=== PATIENT | male | born 1930 | race Caucasian/White ===

== ENCOUNTER 2017-08-07 16:08 | Inpatient (IN) | payer OTHER, BC ==
--- NOTE | 2017-08-07 16:20 | PDOC ---
History of Present Illness - General History Source: Patient Exam Limitations: No Limitations - History of Present Illness Initial Comments: 08/07/17 17:41 The patient is a 87-year-old male with a significant past medical history of HTN and HLD on baby aspirin, who presents to the emergency department with left- sided facial droop today. As per daughter, the patient was at his birthday lunch and had one beer. The patient took a nap at 2pm, which was his last known normal. Daughter states she noticed left-sided facial droop and weakness when the patient woke up at 3pm. Daughter tried to feed the patient water but states that the water drooled out of the left side of his mouth. Daughter denies any current slurred speech or drift in the extremities. Upon interview the patient exhibits mild left-sided facial droop. The patient denies chest pain, shortness of breath, headache and dizziness. The patient denies fever, chills, nausea, vomit, diarrhea and constipation. The patient denies dysuria, frequency, urgency and hematuria. Allergies: NKDA Social History: Recreational alcohol use. No other toxic habits reported <Yaquelin Wright - Last Filed: 08/07/17 17:59> <Kiana De La Fuente - Last Filed: 08/07/17 18:08> - General Chief Complaint: CVA/TIA Stated Complaint: SLURR SPEECH Time Seen by Provider: 08/07/17 16:20 Past History <Yaquelin Wright - Last Filed: 08/07/17 17:59> - Past Medical History Anemia: No Asthma: No Cancer: No Cardiac Disorders: No CVA: No COPD: No CHF: No Diabetes: No GI Disorders: No Disorders: No HTN: Yes Hypercholesterolemia: Yes Liver Disease: No Seizures: No Thyroid Disease: No - Surgical History Cardiac Surgery: No Neurologic Surgery: No Orthopedic Surgery: Yes (REPLACEMENT OF SHOULDER RIGHT) - Suicide/Smoking/Psychosocial Hx Smoking History: Never smoked Have you smoked in the past 12 months: No Information on smoking cessation initiated: No 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[employer]) Drug/Substance Use Hx: No Substance Use Type: None Hx Substance Use Treatment: No <Kiana De La Fuente - Last Filed: 08/07/17 18:08> - Past Medical History Allergies/Adverse Reactions: Allergies Allergy/AdvReac Type Severity Reaction Status Date / Time No Known Drug Allergies Allergy Verified 08/07/17 16:10 Home Medications: Ambulatory Orders Amoxicillin - [Amoxicillin 500mg Capsule -] 500 mg PO PRN 11/28/13 Furosemide [Lasix -] 40 mg PO BID 11/28/13 Hydrocodone/Acetaminophen [Vicodin 5-300 mg Tablet] 1 each PO QID PRN #60 tablet 11/28/13 Lovastatin 40 mg PO DAILY 11/28/13 Metoprolol Succinate [Toprol Xl] 75 mg PO DAILY 11/28/13 Potassium Chloride 10 meq PO DAILY 11/28/13 Review of Systems - Review of Systems Comments:: 08/07/17 17:41 GENERAL/CONSTITUTIONAL: No fever or chills. HEAD, EYES, EARS, NOSE AND THROAT: No change in vision. No ear pain or discharge. No sore throat. CARDIOVASCULAR: No chest pain or shortness of breath. RESPIRATORY: No cough, wheezing, or hemoptysis. GASTROINTESTINAL: No nausea, vomiting, diarrhea or constipation. GENITOURINARY: No dysuria, frequency, or change in urination. MUSCULOSKELETAL: No joint or muscle swelling or pain. No neck or back pain. SKIN: No rash NEUROLOGIC: No headache, vertigo, loss of consciousness. (+) Left-sided facial droop. ENDOCRINE: No increased thirst. No abnormal weight change. HEMATOLOGIC/LYMPHATIC: No anemia, easy bleeding, or history of blood clots. ALLERGIC/IMMUNOLOGIC: No hives or skin allergy. <KyleYaquelin - Last Filed: 08/07/17 17:59> *Physical Exam - Vital Signs Last Vital Signs Temp Pulse Resp BP Pulse Ox 98.3 F 63 17 146/79 96 08/07/17 16:12 08/07/17 16:48 08/07/17 16:48 08/07/17 16:48 08/07/17 16:48 - Physical Exam Comments: 08/07/17 17:41 GENERAL: Awake, alert, and fully oriented, in no acute distress HEAD: No signs of trauma EYES: PERRLA, EOMI, sclera anicteric, conjunctiva clear ENT: Auricles normal inspection, hearing grossly normal, nares patent, oropharynx clear without exudates. Moist mucosa NECK: Normal ROM, supple, no lymphadenopathy, JVD, or masses LUNGS: Breath sounds equal, clear to auscultation bilaterally. No wheezes, and no crackles HEART: Regular rate and rhythm, normal S1 and S2, no murmurs, rubs or gallops ABDOMEN: Soft, nontender, normoactive bowel sounds. No guarding, no rebound. No masses EXTREMITIES: Normal range of motion, no edema. No clubbing or cyanosis. No cords, erythema, or tenderness NEUROLOGICAL: (+) Mild left-sided facial droop. (+) Cant puff out cheek. (+) Asymmetrical smile. Wrinkles forehead symmetrically. Able to close eyes. Normal BUE and BLE. Normal speech. No slurring of speech. SKIN: Warm, Dry, normal turgor, no rashes or lesions noted. <Yaquelin Wright - Last Filed: 08/07/17 17:59> - Vital Signs Last Vital Signs Temp Pulse Resp BP Pulse Ox 98.3 F 63 18 131/69 100 08/07/17 16:12 08/07/17 16:12 08/07/17 16:12 08/07/17 16:12 08/07/17 16:12 <Kiana De La Fuente - Last Filed: 08/07/17 18:08> tPA Exclusion checklist 3-4.5h - Time Elapsed Date last known well: 08/07/17 Time last known well: 14:00 Elaspsed time: Day(s) and 4 Hour(s) and 8 Minutes - Thrombolytic Therapy Candidate Is patient eligible for thrombolytic therapy: No - Ineligibility reason(s) Reasons No tPA given: See reason(s) noted above (improving symptoms - resolution of symptoms) <Kiana De La Fuente - Last Filed: 08/07/17 18:08> Heart Score/ECG Review - ECG Intrepretation Comment:: 08/07/17 16:54 sinus at 60, q waves inferior leads, rbbb, l axis deviation, abnl ekg <Kiana De La Fuente - Last Filed: 08/07/17 18:08> Critical Care Time/[facility] Note - Medical Decision Making Note: 08/07/17 16:45 87yo male presents with his daughter after waking up at 3p with L facial droop -went to sleep at 2p -last normal 2p -woke up at 3p with L facial droop and drooling L side -no slurred speech -no weakness to arms/legs -no cp/sob, no shepherd -Code senior called - pt to CT head 08/07/17 16:[address] Quiñonez - will come to see the patient 08/07/17 16:48 re-eval: muscle strength 5/5 ue and LE still with L facial droop symmetrical wrinkling of forehead, however unable to close L eye fully concern for bells palys vs cva 08/07/17 18:01 re-eval with dr. quiñonez nihss 1 will keep for cva/tia workup for facial droop 08/07/17 18:07 no tpa given resolving symptoms per dr. quiñonez - recommends cva workup - mri, carotids, echo, repeat labs, tele overnight pts pmd is Dr. Irizarry - admits to to Dr. Deshpande - covered by symphony - discussed with IM - accepts pt to service <Kiana De La Fuente - Last Filed: 08/07/17 18:08> Discharge Disposition <Yaquelin Wright - Last Filed: 08/07/17 17:59> - Discharge Dispostion Admit: Yes <Kiana De La Fuente - Last Filed: 08/07/17 18:08> - Diagnosis Facial droop - Discharge Dispostion Condition at time of disposition: Fair - Referrals Referrals: Jose Perez MD [Primary Care Provider] -
[2017-08-07 16:55] LABS: BASO % 0.7 % (0-2.0); HEMATOCRIT 45.6 % (35.4-49); HEMOGLOBIN 15.9 GM/dL (11.7-16.9); LYMPH % 22.1 % (8-40); MEAN CELL VOLUME 91.6 fl (80-96); MEAN PLT VOLUME 8.2 fl (7.5-11.1); MONO % 9.1 % (3.8-10.2); NEUT % 66.1 % (42.8-82.8); PLATELET COUNT 163 K/MM3 (134-434); RBC 4.98 M/mm3 (4.00-5.60); RDW 14.4 % (11.9-15.9); WHITE BLOOD COUNT 6.7 K/mm3 (4.0-10.0)
[2017-08-07 17:09] LABS: INR 0.89 (0.82-1.09); PROTHROMBIN TIME (PATIENT) 10.1 SEC (9.98-11.88)
[2017-08-07 17:42] LABS: ALBUMIN 3.5 g/dl (3.4-5.0); ANION GAP 8 (8-16); BLOOD UREA NITROGEN 23 mg/dL (7-18); CALCIUM 8.6 mg/dL (8.5-10.1); CHLORIDE 107 mmol/L (98-107); CHOLESTEROL 215 mg/dL (50-200); CO2 26 mmol/L (21-32); CREATININE 1.2 mg/dL (0.7-1.3); GLUCOSE,RANDOM 114 mg/dL (74-106); SODIUM 141 mmol/L (136-145)
[2017-08-07 17:44] LABS: ALK PHOS 132 U/L (45-117); BILIRUBIN,TOTAL 0.7 mg/dL (0.2-1.0); HDL CHOLESTEROL 32 mg/dL (40-60); LDL CHOLESTEROL (ONLY SJRH) 112 mg/dL (5-100); TOT PROT 6.9 g/dl (6.4-8.2)
[2017-08-07 17:52] LABS: TRIGLYCERIDES 709 mg/dL (35-160)
[2017-08-07 17:53] LABS: POTASSIUM 4.5 mmol/L (3.5-5.1); SGOT/AST 22 U/L (15-37); SGPT/ALT 27 U/L (12-78)
--- NOTE | 2017-08-07 18:03 | CON.NEURO ---
Consult - History of Present Illness History of Present Illness: 87-year-old male with a significant past medical history of HTN and HLD on baby aspirin, who presents to the emergency department with left-sided facial droop today. As per daughter, the patient was at his birthday lunch and had one beer. The patient took a nap at 2pm, which was his last known normal. Daughter states she noticed left-sided facial droop and weakness when the patient woke up at 3pm. Daughter tried to feed the patient water but states that the water drooled out of the left side of his mouth. Daughter denies any current slurred speech or drift in the extremities. pt denies any complaint and facila weakness according staff has imporved. No tpa was given has he had a low NIH and unclear if this was a stroke. CT HD IMPRESSION: 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 Moderate periventricular and subcortical chronic microvascular ischemic changes. 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) - Smoking History Smoking history: Never smoked Have you smoked in the past 12 months: No Home Medications - Allergies Allergies/Adverse Reactions: Allergies Allergy/AdvReac Type Severity Reaction Status Date / Time No Known Drug Allergies Allergy Verified 08/07/17 16:10 - Home Medications Home Medications: Ambulatory Orders Amoxicillin - [Amoxicillin 500mg Capsule -] 500 mg PO PRN 11/28/13 Furosemide [Lasix -] 40 mg PO BID 11/28/13 Potassium Chloride 10 meq PO DAILY 11/28/13 Aspirin [Ecotrin] 81 mg PO DAILY 08/07/17 Atorvastatin Ca [Lipitor] 20 mg PO HS 08/07/17 Metoprolol Succinate [Toprol Xl -] 50 mg PO DAILY 08/07/17 Pregabalin [Lyrica -] 75 mg PO BID 08/07/17 Valsartan [Diovan] 160 mg PO DAILY 08/07/17 Physical Exam-Neuro Vital Signs: Vital Signs Temperature 98.3 F 08/07/17 16:12 Pulse Rate 63 08/07/17 16:48 Respiratory Rate 17 08/07/17 16:48 Blood Pressure 146/79 08/07/17 16:48 O2 Sat by Pulse Oximetry (%) 96 08/07/17 16:48 Constitutional: Yes: Well Nourished (Awake , alert, minimla L facial, mild dysarthria, no aphasia, motor 5/5, no drift, reflexes trace ) Labs: CBC, BMP 08/07/17 16:36 08/07/17 16:36 INR, PTT INR 0.89 (0.82-1.09) 08/07/17 16:36 NIH Stroke Scale - Last Known Well Date/Time & Onset Date Last Known Well: 08/07/17 Time Last Known Well: 14:00 - Initial Evaluation Level of consciousness: Alert Ask patient the month and their age: Answers both correctly Ask patient to open & close eyes; make fist and let go: Obeys both correctly Best gaze (horizontal eye movement): Normal Visual field testing: No visual field loss Facial paresis (Show teeth/raise eyebrows/close eyes tight): Minor paralysis ( flattened nasolabial fold, asymmetry on smiling) Motor Function: Left Arm: Normal Motor Function: Right Arm: Normal (extends arm 90 (or 45) degrees for 10 seconds without drift Motor Function: Left Leg: Normal (extends leg 30 degrees for 5 seconds without drift) Motor Function: Right Leg: Normal (extends leg 30 degrees for 5 seconds without drift) Limb Ataxia: No ataxia Sensory(Use pinprick test arms,legs,trunk,face/side to side): Normal Best language (Describe picture, name items, read sentences): No Aphasia Dysarthria (read several words): Mild to moderate slurring of words Extinction and Inattention: No abnormality - Total Score NIH Stroke Scale Score: 2 Imaging - Results Cat Scan: Report Reviewed, Image Reviewed Problem List - Problems (1) Transient ischemic attack Code(s): G45.9 - TRANSIENT CEREBRAL ISCHEMIC ATTACK, UNSPECIFIED (2) Facial droop Code(s): R29.810 - FACIAL WEAKNESS Assessment/Plan 87-year-old male with a significant past medical history of HTN and HLD on baby aspirin, who presents to the emergency department with left-sided facial droop tand dysarthria-- r/o subcortical stroke , less likely a [place]. no TPA given low NIH and unclear if stroke. stroke ALFARO- MRI/mRA, dopplers, holter, echo ASA, statin lipids, a1c, TSh Speech and swallow assessment rehab Dr Mccormick
--- NOTE | 2017-08-07 20:57 | HP ---
CHIEF COMPLAINT: left sided facial droop PCP: Chris HISTORY OF PRESENT ILLNESS: This is an 87 year old male with a past medical history of HTN, HLD who presented to the ED with left sided facial droop. Daughter reports that today is pt's birthday and they went out to lunch where he had one beer. They came home and he lay down to take a nap at approximately 2pm and when he awoke at 3pm she noted a left facial droop, aphasia and slurred speech. Daughter also reports pt was unable to swallow water, dribbled out left side of his mouth. Upon exam, speech is clear and fluent. ER course was notable for: (1) CT head with small right frontal subcortical infarct of undeterminate age (2) (3) Recent Travel: pt denies PAST MEDICAL HISTORY: HTN, HLD PAST SURGICAL HISTORY: R shoulder replacement Social History: Smoking: quit 7 years ago Alcohol: daily one glass of wine with dinner, occ beer with lunch Drugs: pt denies Allergies No Known Drug Allergies Allergy (Verified 08/07/17 16:10) HOME MEDICATIONS: 3 Medication Instructions Recorded Amoxicillin - [Amoxicillin 500mg 500 mg PO PRN 11/28/13 Capsule -] Furosemide [Lasix -] 40 mg PO BID 11/28/13 Hydrocodone/Acetaminophen [Vicodin 1 each PO QID PRN #60 tablet 11/28/13 5-300 mg Tablet] Lovastatin 40 mg PO DAILY 11/28/13 Metoprolol Succinate [Toprol Xl] 75 mg PO DAILY 11/28/13 Potassium Chloride 10 meq PO DAILY 11/28/13 REVIEW OF SYSTEMS CONSTITUTIONAL: Absent: fever, chills, diaphoresis, generalized weakness, malaise, loss of appetite, weight change HEENT: difficulty swallowing Absent: rhinorrhea, nasal congestion, throat pain, throat swelling, mouth swelling, ear pain, eye pain, visual changes CARDIOVASCULAR: Absent: chest pain, syncope, palpitations, irregular heart rate, lightheadedness , peripheral edema RESPIRATORY: Absent: cough, shortness of breath, dyspnea with exertion, orthopnea, wheezing, stridor, hemoptysis GASTROINTESTINAL: Absent: abdominal pain, abdominal distension, nausea, vomiting, diarrhea, constipation, melena, hematochezia GENITOURINARY: Absent: dysuria, frequency, urgency, hesitancy, hematuria, flank pain, genital pain MUSCULOSKELETAL: Absent: myalgia, arthralgia, joint swelling, back pain, neck pain SKIN: Absent: rash, itching, pallor HEMATOLOGIC/IMMUNOLOGIC: Absent: easy bleeding, easy bruising, lymphadenopathy, frequent infections ENDOCRINE: Absent: unexplained weight gain, unexplained weight loss, heat intolerance, cold intolerance NEUROLOGIC: Absent: headache, focal weakness or paresthesias, dizziness, unsteady gait, seizure, mental status changes, bladder or bowel incontinence PSYCHIATRIC: Absent: anxiety, depression, suicidal or homicidal ideation, hallucinations. PHYSICAL EXAMINATION Vital Signs - 24 hr 3 08/07/17 08/07/17 08/07/17 16:11 16:12 16:48 Temperature 98.3 F Pulse Rate 63 Pulse Rate [ 58 L 63 Left] Respiratory 17 18 17 Rate Blood Pressure 131/69 Blood Pressure 140/70 146/79 [Left] O2 Sat by Pulse 97 100 96 Oximetry (%) GENERAL: Awake, alert, and fully oriented, in no acute distress. HEAD: Normal with no signs of trauma. EYES: Pupils equal, round and reactive to light, extraocular movements intact, sclera anicteric, conjunctiva clear. No lid lag. Weak and delayed left eye closure EARS, NOSE, THROAT: Ears normal, nares patent, oropharynx clear without exudates. Moist mucous membranes. NECK: Normal range of motion, supple without lymphadenopathy, JVD, or masses. LUNGS: Breath sounds equal, clear to auscultation bilaterally. No wheezes, and no crackles. No accessory muscle use. HEART: Regular rate and rhythm, normal S1 and S2 without murmur, rub or gallop. ABDOMEN: Soft, nontender, not distended, normoactive bowel sounds, no guarding, no rebound, no masses. No hepatomegaly or splenomegaly. MUSCULOSKELETAL: Normal range of motion at all joints. No bony deformities or tenderness. No CVA tenderness. UPPER EXTREMITIES: 2+ pulses, warm, well-perfused. No cyanosis. No clubbing. No peripheral edema. LOWER EXTREMITIES: 2+ pulses, warm, well-perfused. No calf tenderness. No peripheral edema. NEUROLOGICAL: Cranial nerves II-XII intact. Normal speech. Gait not observed. Muscle strength 5/5 bilat upper and lower; no drift. PSYCHIATRIC: Cooperative. Good eye contact. Appropriate mood and affect. SKIN: Warm, dry, normal turgor, no rashes or lesions noted, normal capillary refill. Laboratory Results - last 24 hr 3 08/07/17 08/07/17 08/07/17 16:36 16:36 16:36 WBC 6.7 D RBC 4.98 Hgb 15.9 Hct 45.6 MCV 91.6 MCH 32.0 MCHC 35.0 RDW 14.4 Plt Count 163 MPV 8.2 Neutrophils % 66.1 Lymphocytes % 22.1 D Monocytes % 9.1 Eosinophils % 2.0 Basophils % 0.7 PT with INR 10.10 INR 0.89 Sodium 141 Potassium 4.5 Chloride 107 Carbon Dioxide 26 Anion Gap 8 BUN 23 H Creatinine 1.2 D Creat Clearance w eGFR 57.41 Random Glucose 114 H Calcium 8.6 Total Bilirubin 0.7 AST 22 D ALT 27 D Alkaline Phosphatase 132 H D Creatine Kinase 67 Troponin I < 0.02 Total Protein 6.9 Albumin 3.5 Triglycerides 709 H Cholesterol 215 H Total LDL Cholesterol 112 H HDL Cholesterol [address] Head, noncontrast IMPRESSION: 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 Moderate periventricular and subcortical chronic microvascular ischemic changes. Reported By: Bay Camarena MD 08/07/17 1640 ECG ASSESSMENT/PLAN: 87yM with PMH HTN, HLD who prsented to the ED with sudden onset left facial droop. Left facial droop r/o TIA/CVA - CT head with small subcortical infarct of indeterminate age, MRI head ordered - US carotids - echo - monitor on tele - neuro consult appreciated - asa 325 x1 now - lipitor 80mg hs - ST consult HTN - cont home toprol, lasix and valsartan HLD - home lipitor increased to 80mg DVT PPX - heparin deferred at this time as anticipated LOS,48h FEN - defer IVF if tolerating po - BMP in am - low sodium diet if passes bedside nursing swallow eval Dispo: Pt currently requires further observation. Admit to tele. Visit type - Emergency Visit Emergency Visit: Yes ED Registration Date: 08/07/17 Care time: The patient presented to the Emergency Department on the above date and was hospitalized for further evaluation of their emergent condition. - New Patient This patient is new to me today: Yes Date on this admission: 08/07/17 - Critical Care Critical Care patient: No Hospitalist Screening - Colonoscopy Questionnaire Colonoscopy Questionnaire: Colonoscopy Questionnaire - Patient: 50 - 75 years old and never had a screening colonoscopy: No History of colon or rectal polyps, or CA: No History of IBD, Crohn's disease or UC: No History of abdominal radiation therapy as a child: No - Relative: 1 with colon or rectal CA, or polyps at age 60 or younger: No Colon or rectal CA diagnosed at age 45 or younger: No Multiple relatives with colon or rectal CA: No - Outcome: Screening Result: Negative Screen
[2017-08-07] MEDS ORDERED: ASPIRIN 325 MG TABLET PO ONE (21:21)
[2017-08-07] MEDS ORDERED: ASPIRIN 325 MG TABLET ONE (21:45)
[2017-08-07] MEDS ORDERED: SODIUM CHLORIDE 1,000 ML IV SCH (22:00)
[2017-08-07 22:26] LABS: URINE APPEARANCE CLEAR; URINE BILIRUBIN NEGATIVE (<2.0 mg/dL); URINE BLOOD NEGATIVE (NEGATIVE); URINE COLOR LTYELLOW; URINE GLUCOSE (UA) NEGATIVE (NEGATIVE); URINE KETONE NEGATIVE (NEGATIVE); URINE LEUK ESTERASE NEGATIVE (NEGATIVE); URINE NITRITE NEGATIVE (NEGATIVE); URINE PROTEIN NEGATIVE (NEGATIVE); URINE UROBILINOGEN NEGATIVE mg/dL (0.2-1.0)
[2017-08-07] MEDS: FUROSEMIDE 40 MG TABLET (FP) PO SCH (23:31)
[2017-08-07] MEDS: ATORVASTATIN CA 80 MG TABLET (FP) PO SCH (23:31)
[2017-08-07] MEDS: PREGABALIN 75 MG CAPSULE PO SCH (23:31)
[2017-08-08 01:09] VITALS: BMI 31.5
[2017-08-08 07:17] LABS: BASO % 0.7 % (0-2.0); EOS % 3.2 % (0-4.5); HEMATOCRIT 41.3 % (35.4-49); HEMOGLOBIN 14.1 GM/dL (11.7-16.9); LYMPH % 28.5 % (8-40); MCH 31.2 pg (25.7-33.7); MCHC 34.1 g/dl (32.0-35.9); MEAN CELL VOLUME 91.6 fl (80-96); MEAN PLT VOLUME 8.1 fl (7.5-11.1); MONO % 9.8 % (3.8-10.2); NEUT % 57.8 % (42.8-82.8); PLATELET COUNT 136 K/MM3 (134-434); RBC 4.51 M/mm3 (4.00-5.60); RDW 14.3 % (11.9-15.9); WHITE BLOOD COUNT 4.8 K/mm3 (4.0-10.0)
[2017-08-08 07:53] LABS: CHLORIDE 107 mmol/L (98-107); POTASSIUM 4.2 mmol/L (3.5-5.1); SODIUM 144 mmol/L (136-145)
[2017-08-08 08:02] LABS: ANION GAP 10 (8-16); BLOOD UREA NITROGEN 24 mg/dL (7-18); CALCIUM 8.6 mg/dL (8.5-10.1); CO2 27 mmol/L (21-32); CREATININE 1.1 mg/dL (0.7-1.3); GLUCOSE,RANDOM 94 mg/dL (74-106); MAGNESIUM 2.3 mg/dL (1.8-2.4); PHOSPHOROUS 3.7 mg/dL (2.5-4.9)
[2017-08-08] MEDS: ASPIRIN COATED 81 MG TABLET.EC PO SCH (09:30)
[2017-08-08] MEDS: FUROSEMIDE 40 MG TABLET (FP) PO SCH ×2 (09:31→22:52)
[2017-08-08] MEDS: VALSARTAN 160 MG TABLET (UD) PO SCH (09:31)
[2017-08-08] MEDS: PREGABALIN 75 MG CAPSULE PO SCH ×2 (09:31→22:52)
[2017-08-08] MEDS: POTASSIUM CHLORIDE TABS 10 MEQ TABLET.ER (FP) PO SCH (09:31)
--- NOTE | 2017-08-08 10:13 | CONSULT ---
Admitting History and Physical - Primary Care Physician PCP: Mary Rodriguez - Admission History of Present Illness: 87yM with PMH HTN, HLD who prsented to the ED with sudden onset left facial droop r/o TIA/CVA Selected Entries 08/07/17 08/07/17 08/08/17 16:12 22:00 02:09 Temperature 98.3 F 98.9 F 97.8 F Laboratory Tests 08/07/17 08/08/17 16:36 06:[address] head with small subcortical infarct of indeterminate age, MRI head ordered Per neurology- left-sided facial droop and dysarthria-- r/o subcortical stroke , less likely a [place]. no TPA given low NIH and unclear if stroke. 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 Moderate periventricular and subcortical chronic microvascular ischemic changes) MRI: Pending - General Mental Status: Alert and Oriented, Awake and Alert, Able to Follow Commands Attention: Intact Ability to Follow Directions: Excellent Head/Neck Control: WFL - Hearing Hearing: Normal Speech Evaluation - Communication Primary Language: KINYARWANDA Secondary Language: NAMIBIAN (fluent) Communication: Yes: Dysarthria Oral Expression Ability: Yes: Mild Impairment - Speech Production Able to Make Needs Known: Yes: WNL Intelligibility: Yes: Mildly Impaired - Speech Characteristics Voice Loudness: Normal Voice Pitch: Yes: Normal Voice Phonatory-based Quality: Yes: Normal Speech Pattern: Impaired (slight to mild) Speech Clarity: < 100% Nasal Resonance: Normal Articulation: Yes: Imprecise (slight) Rate of Speech: Too Slow (sloght) - Language/Auditory Comprehension Follows: Yes: 2 Stage Simple Commands Observation: Able to respond to yes/no queries: Yes, Yes/No Confusion: No, Comprehends Conversational Speech: Yes - Language/Verbal Expression Able to Respond to Simple Queries: Yes: WNL Able to Communicate Wants and Needs: Yes: WNL Functional Communication Status: Yes: WNL - Swallow Evaluation/Bedside Assessment Current Nutritional Intake: Regular, Thin Liquids Oral Secretions: Yes: WFL Dentition: Yes: Edentulous (lower) Facial Symmetry at Rest: Facial Droop Left (slight) Facial Symmetry on Retraction: Facial Droop Left (slight) Pucker Lips: Normal, Weak (bilat? L.R) Smile: Droops Left (slight), Weak (bilat? L.R) Lingual Movement: Normal, Symmetric Lingual Speed of Movement: Reduced Lingual Movement Strgth Against Opposition: Reduced Lingual Movement Characteristics: Normal Velopharyngeal Movement: Normal Laryngeal Movement: Labored,delay initiation, Reduced Velocity Rate of Intake: WFL Bolus Size: WFL Oral Prep Time: WFL A-P Transit: WFL Pocketing: None Timing of Swallow: Delayed Coughing/Throat Clear: No Change in Voice: No Recommendations - Speech Evaluation, Impression/Plan Impression: Mild dysarthria with reduced articulatory precision and VOM. Overtly swallowing is mildly delayed in onset and reduced in VOM. (-) 3 oz water test. oriented. Pending MRI. - Dysphagia Impressions/Plan Dysphagia Impressions: Mild Impairment, Ongoing Evaluation *Silent aspiration: cannot be R/O at bedside Dysphagia Treatment Plan: Small Bites, Chin Tuck/Down, Elevate HOB during feed Recommendations: Modified Barium Swallow (if cough, congestion, fever) - Recommendations Diet Consistency: Regular (soft) Medication Administration: Whole with water Liquids: Thin Liquids
--- NOTE | 2017-08-08 12:17 | PN ---
Progress Note, Physician Chief Complaint: Events Noted Pt is eating without difficulty No distress He is ambulating well per staff - Current Medication List Current Medications: Active Medications Aspirin (Ecotrin -) 81 mg PO DAILY [facility] Last Admin: 08/08/17 09:30 Dose: 81 mg Atorvastatin Calcium (Lipitor -) 80 mg PO HS [facility] Last Admin: 08/07/17 23:31 Dose: 80 mg Furosemide (Lasix -) 40 mg PO BID [facility] Last Admin: 08/08/17 09:31 Dose: 40 mg Metoprolol Succinate (Toprol Xl -) 50 mg PO DAILY [facility] Last Admin: 08/08/17 09:31 Dose: 50 mg Potassium Chloride (K-Dur -) 10 meq PO DAILY [facility] Last Admin: 08/08/17 09:31 Dose: 10 meq Pregabalin (Lyrica -) 75 mg PO BID [facility] Last Admin: 08/08/17 09:31 Dose: 75 mg Valsartan (Diovan -) 160 mg PO DAILY [facility] Last Admin: 08/08/17 09:31 Dose: 160 mg - Objective Vital Signs: Vital Signs Temperature 97.8 F 08/08/17 02:09 Pulse Rate 53 L 08/08/17 06:00 Respiratory Rate 20 08/08/17 06:00 Blood Pressure 106/65 08/08/17 06:00 O2 Sat by Pulse Oximetry (%) 96 08/07/17 22:00 Constitutional: Yes: No Distress, Calm Cardiovascular: Yes: Regular Rate and Rhythm Respiratory: Yes: CTA Bilaterally Gastrointestinal: Yes: Normal Bowel Sounds, Soft, Abdomen, Obese. No: Tenderness Edema: No Neurological: Yes: Alert, Oriented, Facial Droop. No: Aphasia, Ataxia, Tremors , Weakness Labs: CBC, BMP 08/08/17 06:57 08/08/17 06:57 INR, PTT INR 0.89 (0.82-1.09) 08/07/17 16:36 Problem List - Problems (1) Facial droop Code(s): R29.810 - FACIAL WEAKNESS (2) Transient ischemic attack Code(s): G45.9 - TRANSIENT CEREBRAL ISCHEMIC ATTACK, UNSPECIFIED (3) Hyperlipidemia Code(s): E78.5 - HYPERLIPIDEMIA, UNSPECIFIED (4) HTN (hypertension) Code(s): I10 - ESSENTIAL (PRIMARY) HYPERTENSION Assessment/Plan PLAN CT head noted Neurology evaluation appreciated Spoke with daughter add on repeat lipid panel-- last one is post prandial Echo and carotid ordered Brain MRI done Continue with meds ASA
[2017-08-08 14:36] LABS: CHOLESTEROL 176 mg/dL (50-200); HDL CHOLESTEROL 39 mg/dL (40-60); LDL CHOLESTEROL (ONLY SJRH) 102 mg/dL (5-100); TRIGLYCERIDES 233 mg/dL (35-160)
--- NOTE | 2017-08-08 17:03 | EKG ---
Test Reason : Blood Pressure : / mmHG Vent. 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
--- NOTE | 2017-08-08 21:41 | PN ---
Progress Note (short form) - Note Progress Note: 7-year-old male with a significant past medical history of HTN and HLD on baby aspirin, who presents to the emergency department with left-sided facial droop today. As per daughter, the patient was at his birthday lunch and had one beer. The patient took a nap at 2pm, which was his last known normal. Daughter states she noticed left-sided facial droop and weakness when the patient woke up at 3pm. Daughter tried to feed the patient water but states that the water drooled out of the left side of his mouth. Daughter denies any current slurred speech or drift in the extremities. pt denies any complaint and facila weakness according staff has imporved. No tpa was given has he had a low NIH and unclear if this was a stroke. CT HD IMPRESSION: 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 Moderate periventricular and subcortical chronic microvascular ischemic changes. MRI Brain with multiple acute/subacute lacunar infarcts in right PVWM and acute to subacute lacunarinf. inn right post temp/occipitral junction Exam-remains with left facial weakness and minimal dysarthria. A&P: Pt. with new right subcortical lacunar infarct causing findings that pt. presented with in addition to right sided older infarcts. All these lacunar infarcts are in the territory of right MCA-appears to have art/art embolii likely emanating from right MCA stem stenosis/thrombus and less likely right common carotrid. I suggest placing pt. on Plavix, d/cing ASA and obtainuing a cardiology opinion as to whether there is a possibility of cardiac embolii. Thank Emelia cedillo MD
[2017-08-08] MEDS: ATORVASTATIN CA 80 MG TABLET (FP) PO SCH (22:52)
--- NOTE | 2017-08-09 09:25 | CON.CARD ---
Consult Consult Specialty:: Cardiology Referred by:: Lily Deshpande MD Reason for Consultation:: Left facial droop - History of Present Illness Chief Complaint: Left facial droop History of Present Illness: 87-year-old male with a significant past medical history of HTN and HLD on baby aspirin, who presented with left-sided facial droop and weakness with dysarthria and dysphagia since resolved. Daughter denies any current slurred speech, weakness or drift in the extremities. No tpa was given has he had a low NIH and unclear if this was a stroke. He denies chest pain, dyspnea, near or true syncope, palpitations, orthopnea, PND or LE edema. HCT shows 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 Moderate periventricular and subcortical chronic microvascular ischemic changes. 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[employer]) - Smoking History Smoking history: Never smoked Have you smoked in the past 12 months: No Home Medications - Allergies Allergies/Adverse Reactions: Allergies Allergy/AdvReac Type Severity Reaction Status Date / Time No Known Drug Allergies Allergy Verified 08/07/17 16:10 - Home Medications Home Medications: Ambulatory Orders Amoxicillin - [Amoxicillin 500mg Capsule -] 500 mg PO PRN 11/28/13 Furosemide [Lasix -] 40 mg PO BID 11/28/13 Potassium Chloride 10 meq PO DAILY 11/28/13 Aspirin [Ecotrin] 81 mg PO DAILY 08/07/17 Atorvastatin Ca [Lipitor] 20 mg PO HS 08/07/17 Metoprolol Succinate [Toprol Xl -] 50 mg PO DAILY 08/07/17 Pregabalin [Lyrica -] 75 mg PO BID 08/07/17 Valsartan [Diovan] 160 mg PO DAILY 08/07/17 Review of Systems - Review of Systems Neurological: reports: Change in Speech Vital Signs: Vital Signs Temperature 98.1 F 08/09/17 06:00 Pulse Rate 52 L 08/09/17 06:00 Respiratory Rate 20 08/09/17 06:00 Blood Pressure 109/72 08/09/17 06:00 O2 Sat by Pulse Oximetry (%) 97 08/09/17 01:50 Constitutional: Yes: No Distress, Calm Neck: Yes: Supple Respiratory: Yes: Regular, CTA Bilaterally Gastrointestinal: Yes: Normal Bowel Sounds, Soft, Abdomen, Obese Cardiovascular: Yes: Regular Rate and Rhythm JVD: No Carotid Bruit: No Heart Sounds: Yes: S1, S2 Edema: No - Other Data Labs, Other Data: CBC, BMP 08/08/17 06:57 08/08/17 06:57 INR, PTT INR 0.89 (0.82-1.09) 08/07/17 16:36 NSR @ 60 LAD, RBBB Echo: Report Reviewed Ejection Fraction %: LVEF > or = 40 % Imaging - Results Ultrasound: Report Reviewed (No sig carotid stenosis) MRI: Report Reviewed Problem List - Problems (1) Acute lacunar stroke Code(s): I63.9 - CEREBRAL INFARCTION, UNSPECIFIED (2) Diastolic dysfunction without heart failure Code(s): I51.9 - HEART DISEASE, UNSPECIFIED (3) Facial droop Code(s): R29.810 - FACIAL WEAKNESS (4) HTN (hypertension) Code(s): I10 - ESSENTIAL (PRIMARY) HYPERTENSION Qualifiers: Hypertension type: essential hypertension Qualified Code(s): I10 - Essential (primary) hypertension (5) Hyperlipidemia Code(s): E78.5 - HYPERLIPIDEMIA, UNSPECIFIED Qualifiers: Hyperlipidemia type: pure hypercholesterolemia Qualified Code(s): E78.00 - Pure hypercholesterolemia, unspecified; E78.0 - Pure hypercholesterolemia Assessment/Plan MRI Brain with multiple acute/subacute lacunar infarcts in right PVWM and acute to subacute lacunar infarct in right post temp/occipitral junction 08/08/2017 Echo: Normal biventricular size and fxn, mild LAE, mild MD, TR 1. Acute right subcortical lacunar infarct with older right-sided infarcts improved 2. HTN/HCVD 3. Hyperlipidemia 4. Diastolic dysfunction P:1. Telemetry shows no paroxysmal afib in-house, recommend prolonged arrhythmia monitoring as outpatient to exclude PAF as etiology 2. Consider DRE as outpatient to exclude intracardiac source of thromboemboli 3. Continue Plavix 75 qd, Lipitor 20 qhs, Toprol XL 50 qd, Diovan 160 qd, Lasix 40 bid 4. Thank you for consultative opportunity
[2017-08-09] MEDS: FUROSEMIDE 40 MG TABLET (FP) PO SCH (09:31)
[2017-08-09] MEDS: ASPIRIN COATED 81 MG TABLET.EC PO SCH (09:31)
[2017-08-09] MEDS: POTASSIUM CHLORIDE TABS 10 MEQ TABLET.ER (FP) PO SCH (09:31)
[2017-08-09] MEDS: VALSARTAN 160 MG TABLET (UD) PO SCH (09:31)
[2017-08-09] MEDS: PREGABALIN 75 MG CAPSULE PO SCH (09:31)
[2017-08-09] MEDS ORDERED: CLOPIDOGREL BISULFATE 75 MG TABLET (FP) PO SCH (10:00)
[2017-08-09 10:25] VITALS: BP 144/60; PULSE 57; TEMP 97.4
--- NOTE | 2017-08-09 11:37 | DS ---
Physical Examination Vital Signs: Vital Signs Temperature 97.4 F L 08/09/17 10:00 Pulse Rate 57 L 08/09/17 10:00 Respiratory Rate 22 08/09/17 10:00 Blood Pressure 144/60 08/09/17 10:00 O2 Sat by Pulse Oximetry (%) 94 L 08/09/17 10:00 Constitutional: Yes: No Distress, Calm Cardiovascular: Yes: Regular Rate and Rhythm Respiratory: Yes: CTA Bilaterally Gastrointestinal: Yes: Normal Bowel Sounds, Soft, Abdomen, Obese. No: Tenderness Edema: No Labs: CBC, BMP 08/08/17 06:57 08/08/17 06:57 Discharge Summary Reason For Visit: FACIAL WEAKNESS Current Active Problems Acute lacunar stroke (Acute) Diastolic dysfunction without heart failure (Acute) Facial droop (Acute) HTN (hypertension) (Acute) Hyperlipidemia (Acute) Transient ischemic attack (Acute) Hospital Course: Admitted for facial drooping Recovered quickly CT head negative Carotid doppler-- no stenosis Echo-- normal EF Telemetry- No irregular heat beats Seen by Neurology and Cardiology-- Brain MRI-- showed multiple lacunar infarcts. 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 Pt has no swallowing/ speech problems. pt is stable to ut home Condition: Fair - Instructions Diet, Activity, Other Instructions: No driving for now Eat heart healthy foods, lead active life style Referrals: Jose Perez MD [Primary Care Provider] - 3 Weeks Cheko Salazar MD [Staff Physician] - 1 Week Damien Mccormick DO [Staff Physician] - 1 Week Disposition: HOME - Home Medications Comprehensive Discharge Medication List: Ambulatory Orders Amoxicillin - [Amoxicillin 500mg Capsule -] 500 mg PO PRN 11/28/13 Furosemide [Lasix -] 40 mg PO BID 11/28/13 Potassium Chloride 10 meq PO DAILY 11/28/13 Aspirin [Ecotrin] 81 mg PO DAILY 08/07/17 Atorvastatin Ca [Lipitor] 20 mg PO HS 08/07/17 Metoprolol Succinate [Toprol Xl -] 50 mg PO DAILY 08/07/17 Pregabalin [Lyrica -] 75 mg PO BID 08/07/17 Valsartan [Diovan] 160 mg PO DAILY 08/07/17
--- NOTE | 2017-08-09 13:20 | PN ---
Progress Note (short form) - Note Progress Note: 87-year-old male with a significant past medical history of HTN and HLD on baby aspirin, who presents to the emergency department with left-sided facial droop today. As per daughter, the patient was at his birthday lunch and had one beer. The patient took a nap at 2pm, which was his last known normal. Daughter states she noticed left-sided facial droop and weakness when the patient woke up at 3pm. Daughter tried to feed the patient water but states that the water drooled out of the left side of his mouth. Daughter denies any current slurred speech or drift in the extremities. pt denies any complaint and facila weakness according staff has imporved. No tpa was given has he had a low NIH and unclear if this was a stroke. CT HD IMPRESSION: 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 Moderate periventricular and subcortical chronic microvascular ischemic changes. MRI BRAIN : IMPRESSION: Moderate atrophy and extensive periventricular chronic microvascular ischemic disease changes. Multiple acute/subacute lacunar and slightly larger infarcts in the right periventricular white matter at the level of the coronary duct and centrum semiovale as well as an acute process subacute lacunar infarct in the right subinsular cortex and likely at the junction of the right posterior temporal and occipital lobe. Doppler Impression: Intimal thickening in the distal common carotid artery and multiple [id number] sized plaques at the left common carotid bifurcation and bulb as well as small plaques at the right common carotid bifurcation and bulb without evidence of hemodynamically significant stenosis, bilaterally. 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[employer]) - Smoking History Smoking history: Never smoked Have you smoked in the past 12 months: No Home Medications - Allergies Allergies/Adverse Reactions: Allergies Allergy/AdvReac Type Severity Reaction Status Date / Time No Known Drug Allergies Allergy Verified 08/07/17 16:10 - Home Medications Home Medications: Ambulatory Orders Amoxicillin - [Amoxicillin 500mg Capsule -] 500 mg PO PRN 11/28/13 Furosemide [Lasix -] 40 mg PO BID 11/28/13 Potassium Chloride 10 meq PO DAILY 11/28/13 Aspirin [Ecotrin] 81 mg PO DAILY 08/07/17 Atorvastatin Ca [Lipitor] 20 mg PO HS 08/07/17 Metoprolol Succinate [Toprol Xl -] 50 mg PO DAILY 08/07/17 Pregabalin [Lyrica -] 75 mg PO BID 08/07/17 Valsartan [Diovan] 160 mg PO DAILY 08/07/17 Physical Exam-Neuro Vital Signs: Vital Signs Temperature 97.4 F L 08/09/17 10:00 Pulse Rate 57 L 08/09/17 10:00 Respiratory Rate 22 08/09/17 10:00 Blood Pressure 144/60 08/09/17 10:00 O2 Sat by Pulse Oximetry (%) 94 L 08/09/17 10:00 Constitutional: Yes: Well Nourished (Awake , alert, minimla L facial, mild dysarthria, no aphasia, motor 5/5, no drift, reflexes trace ) Labs: CBCD WBC 4.8 K/mm3 (4.0-10.0) 08/08/17 06:57 RBC 4.51 M/mm3 (4.00-5.60) 08/08/17 06:57 Hgb 14.1 GM/dL (11.7-16.9) D 08/08/17 06:57 Hct 41.3 % (35.4-49) 08/08/17 06:57 MCV 91.6 fl (80-96) 08/08/17 06:57 MCHC 34.1 g/dl (32.0-35.9) 08/08/17 06:57 RDW 14.3 % (11.9-15.9) 08/08/17 06:57 Plt Count 136 K/MM3 (134-434) 08/08/17 06:57 MPV 8.1 fl (7.5-11.1) 08/08/17 06:57 CMP Sodium 144 mmol/L (136-145) 08/08/17 06:57 Potassium 4.2 mmol/L (3.5-5.1) 08/08/17 06:57 Chloride 107 mmol/L (98-107) 08/08/17 06:57 Carbon Dioxide 27 mmol/L (21-32) 08/08/17 06:57 Anion Gap 10 (8-16) 08/08/17 06:57 BUN 24 mg/dL (7-18) H 08/08/17 06:57 Creatinine 1.1 mg/dL (0.7-1.3) 08/08/17 06:57 Creat Clearance w eGFR 57.41 (>60) 08/07/17 16:36 Calcium 8.6 mg/dL (8.5-10.1) 08/08/17 06:57 Total Bilirubin 0.7 mg/dL (0.2-1.0) 08/07/17 16:36 AST 22 U/L (15-37) D 08/07/17 16:36 ALT 27 U/L (12-78) D 08/07/17 16:36 Alkaline Phosphatase 132 U/L (45-117) H D 08/07/17 16:36 Total Protein 6.9 g/dl (6.4-8.2) 08/07/17 16:36 Albumin 3.5 g/dl (3.4-5.0) 08/07/17 16:36 NIH Stroke Scale - Last Known Well Date/Time & Onset Date Last Known Well: 08/07/17 Time Last Known Well: 14:00 - Initial Evaluation Level of consciousness: Alert Ask patient the month and their age: Answers both correctly Ask patient to open & close eyes; make fist and let go: Obeys both correctly Best gaze (horizontal eye movement): Normal Visual field testing: No visual field loss Facial paresis (Show teeth/raise eyebrows/close eyes tight): Minor paralysis ( flattened nasolabial fold, asymmetry on smiling) Motor Function: Left Arm: Normal Motor Function: Right Arm: Normal (extends arm 90 (or 45) degrees for 10 seconds without drift Motor Function: Left Leg: Normal (extends leg 30 degrees for 5 seconds without drift) Motor Function: Right Leg: Normal (extends leg 30 degrees for 5 seconds without drift) Limb Ataxia: No ataxia Sensory(Use pinprick test arms,legs,trunk,face/side to side): Normal Best language (Describe picture, name items, read sentences): No Aphasia Dysarthria (read several words): Mild to moderate slurring of words Extinction and Inattention: No abnormality - Total Score NIH Stroke Scale Score: 2 Imaging - Results Cat Scan: Report Reviewed, Image Reviewed Problem List - Problems (1) Transient ischemic attack Code(s): G45.9 - TRANSIENT CEREBRAL ISCHEMIC ATTACK, UNSPECIFIED (2) Facial droop Code(s): R29.810 - FACIAL WEAKNESS Assessment/Plan 87-year-old male with a significant past medical history of HTN and HLD on baby aspirin, who presents to the emergency department with left-sided facial droop and dysarthria--with R RCa deep perforators - watershed vs embolic no sig carotid disease ASA/plavix x 3 months, statin Fu echo, holter neurologically cleared for rehab/home Dr Mccormick Problem List - Problems (1) Transient ischemic attack Code(s): G45.9 - TRANSIENT CEREBRAL ISCHEMIC ATTACK, UNSPECIFIED (2) Facial droop Code(s): R29.810 - FACIAL WEAKNESS
== END 2017-08-09 13:27 | disposition home or self-care (01) | DRG 66 ==
LOC: JER 16:08 → JERBED 18:02 → J4W 22:34 → OBSVTOIN 08-08 15:00
PROVIDERS: ADMIT Internal Medicine; ATTEND Internal Medicine
DX: I63.9 Cerebral infarction, unspecified (principal); R29.810 Facial weakness; E78.5 Hyperlipidemia, unspecified; I11.9 Hypertensive heart disease without heart failure; R29.702 NIHSS score 2
CPT/HCPCS: 36415; 70450-TC; 70551-TC; 80048; 80053; 80061; 80307; 81003; 82465; 82550; 83718; 83721; 83735; 84100; 84478; 84484; 85025; 85610; 93005; 93010; 93306-TC; 93880-TC; 97116-GP; 97161-GP; 99285-25; G0378

== ENCOUNTER 2017-09-04 11:01 | Day surgery (SDC) | payer OTHER, BC ==
[2017-09-01 14:46] VITALS: BMI 31.5
[2017-09-04] MEDS ORDERED: LIDOCAINE VISCOUS 2% ORAL/TOP 20 ML UNIT-DOSE CUP ONE (11:45)
[2017-09-04 12:00] VITALS: TEMP 98.2
[2017-09-04] MEDS ORDERED: LIDOCAINE VISCOUS 2% ORAL/TOP 20 ML UNIT-DOSE CUP MM ONE (12:53)
[2017-09-04 14:09] VITALS: PULSE 51
[2017-09-04 14:34] VITALS: BP 136/71
== END 2017-09-04 14:34 | disposition home or self-care (01) ==
LOC: JASU-ENDO 11:01
PROVIDERS: ATTEND Internal Medicine Cardiovascular Disease
PROC: B246ZZ4 Ultrasonography of Right and Left Heart, Transesophageal (ICD-10-PCS; principal; 2017-09-04 12:00)
DX: G45.9 Transient cerebral ischemic attack, unspecified (principal); I34.1 Nonrheumatic mitral (valve) prolapse; I35.1 Nonrheumatic aortic (valve) insufficiency; I70.0 Atherosclerosis of aorta
CPT/HCPCS: 93312; 93325